=== PATIENT | male | born 1995 | race Asian ===

== ENCOUNTER 2017-07-02 02:23 | Emergency (ER) | payer OTHER ==
[~2017-07-02] VITALS: Ht 162.6 cm; Wt 59.4 kg
[2017-07-02 02:33] VITALS: Ht 162.6 cm; Wt 59.4 kg
[2017-07-02 03:01] LABS: CALCIUM 8.9 mg/dl (8.5-10.1); CREATININE 1.05 mg/dl (0.60-1.40); POTASSIUM 3.4 mmol/L (3.5-5.1)
[2017-07-02 08:37] VITALS: BP 116/88; PULSE 93; TEMP 36.7; O2SAT 99
--- NOTE | 2017-07-02 17:26 | EMERGENCY ROOM VISIT NOTE ---
ED Visit Note First contact with patient: 08:32 Patient was signed out to me by Odette MARTINEZ due to change of shift. Please see his dictation for full history and physical. Patient remained stable while in the ED. He awoke on his own this morning. He denied any areas of discomfort. He does remember being restrained by the police. He currently denies any headache, chest pain, shortness of breath, abdominal pain, or extremity pain. No nausea or vomiting. Reexamination reveals no significant abrasions. He has no pain with palpation over his extremities or back. Good range of motion of his neck. He was discharged to home by taxi. Lion care handout was provided. Avoid alcohol today. Maintain hydration. Alcohol intoxication handout was also provided. Tylenol and Motrin every 6 hours as needed for mild discomfort. Ice to any sore areas as needed. Return to the ED or follow-up with [facility] for any persisting discomfort. Current/Historical Medications No Active Prescriptions or Reported Meds Allergies Coded Allergies: No Known Allergies (Unverified , 07/02/17) Vital Signs Date Time Temp Pulse Resp B/P (MAP) Pulse Ox O2 Delivery O2 Flow Rate FiO2 07/02/17 08:37 36.7 93 10 116/88 99 07/02/17 08:30 116/88 07/02/17 08:20 93 10 99 07/02/17 08:05 85 13 99 07/02/17 08:00 114/84 07/02/17 07:50 91 15 93 07/02/17 07:45 95 17 95 07/02/17 07:31 124/65 07/02/17 07:30 100 13 94 07/02/17 07:15 97 25 90 07/02/17 07:00 102 12 117/77 96 07/02/17 06:56 113/74 07/02/17 06:45 75 15 96 07/02/17 06:30 76 15 96 Room Air 07/02/17 06:07 80 07/02/17 06:00 74 16 117/80 95 Room Air 07/02/17 05:30 77 14 97 Room Air 07/02/17 05:00 78 16 96 Room Air 07/02/17 04:30 85 18 94 Room Air 07/02/17 04:23 83 18 94 Room Air 07/02/17 03:53 86 20 93 Room Air 07/02/17 03:23 104 96 Room Air 07/02/17 03:00 141/80 07/02/17 02:53 110 19 96 Room Air 07/02/17 02:48 135/91 07/02/17 02:46 99 07/02/17 02:40 Room Air 07/02/17 02:40 Room Air 07/02/17 02:33 36.7 109 20 145/87 98 Room Air Laboratory Results 07/02/17 02:30 Test 07/02/17 02:30 Anion Gap 11.0 mmol/L (3-11) Est Creatinine Clear Calc Drug Dose 94.0 ml/min Estimated GFR () 117.9 Estimated GFR (Non- 101.7 BUN/Creatinine Ratio 12.9 (10-20) Calcium Level 8.9 mg/dl (8.5-10.1) Ethyl Alcohol mg/dL 184.0 mg/dl (0-3) Departure Information Impression Primary Impression: Alcohol use with intoxication Dispostion Home / Self-Care Condition GOOD Prescriptions No Active Prescriptions or Reported Meds Referrals No Doctor, Assigned (PCP) [facility] Forms HOME CARE DOCUMENTATION FORM, IMPORTANT VISIT INFORMATION Patient Instructions Alcohol Abuse - [facility], [facility], [facility]: [employer] and Alcohol Related Visits Additional Instructions You were seen and evaluated today on an emergency basis only. This is not a substitute for, or an effort to provide, complete comprehensive medical care. It is not possible to recognize and treat all injuries or illnesses in a single emergency department visit. Keep well-hydrated. Small sips of water over a long period of time are better tolerated than large amounts at once. Tylenol 1000 mg every 6 hours as needed for pain (Maximum 3000 mg Tylenol in 24 hr period). Local police were involved in your episode this evening. Check with them to determine your legal status. Follow up with family doctor as needed. You are welcome to return to the emergency department anytime with new, worsening, or concerning symptoms.
--- NOTE | 2017-07-03 06:08 | EMERGENCY ROOM VISIT NOTE ---
ED Visit Note First contact with patient: 02:26 CHIEF COMPLAINT: Altered mental status from Alcohol overdose HISTORY OF PRESENT ILLNESS: This 21 year old male patient presents to the emergency department via ambulance for evaluation of altered mental status. The patient was identified by local police as he was running in and [place] of the [place] on [address]. The patient did not surrender to police, and attempted to run away from them. He ultimately ended up tripping and they were able to restrain him. The patient was not cooperative according to EMS. The patient will answer questions with a single word response. He does not report injury or medical problems. He admits to drinking but no drug use. REVIEW OF SYSTEMS: Review of systems was somewhat limited secondary to patient' s presumed alcohol intoxication status. Review of systems was performed to the best of our ability and reperformed as the patient began to sober up. All other systems were reviewed and are negative. ALLERGIES: See EMR MEDICATIONS: See EMR PMH: No chronic medical disease SOCIAL HISTORY: Lives locally PHYSICAL EXAM VITALS: Vitals are noted on the nurse's note and reviewed by myself. Vital signs stable. GENERAL: male, who is in no acute distress and resting comfortably. Patient is visibly altered and smells of alcohol. HEAD: Normocephalic atraumatic. EARS: External ear normal. External auditory canals clear, tympanic membranes pearly woo without erythema or effusion bilaterally. EYES: Pupils equal round and reactive to light and accommodation. Conjunctivae without injection, sclerae without icterus. Extraocular movements intact. NOSE: Patent, turbinates without inflammation or discharge. MOUTH: Mucous membranes moist. Tonsils are not enlarged. Pharynx without erythema, blood, vomitus, or exudate. Uvula midline. Airway patent. NECK: Supple without nuchal rigidity. No lymphadenopathy. Cervical spine is nontender. HEART: Regular rate and rhythm without murmurs gallops or rubs. LUNGS: Clear to auscultation bilaterally without wheezes, rales or rhonchi. No retractions or accessory muscle use. ABDOMEN: Positive normal bowel sounds x 4. Soft, nontender, without masses or organomegaly. No guarding or rebound tenderness. MUSCULOSKELETAL: No muscle atrophy, erythema, or edema noted. Gross motor function intact to all extremities. NEURO: Patient was alert to person but not place or time. They appear with altered mental status. SKIN: The skin was without rashes, erythema, edema, or bruising. No Tenting of the skin. EMERGENCY DEPARTMENT COURSE: Physical exam and history was performed. Nursing notes and EMR were reviewed. The patient appears to be altered on my examination. I suspect this is from an alcohol overdose. Conservative care measures and aspiration precautions were instituted. The patient was placed on lunchroom monitor and watched during the patient's stay. The patient was placed in a prone position. Blood work was obtained and was reviewed. The patient's blood alcohol level was 184. This appears to be the primary cause of the altered status. Patient was reevaluated multiple times throughout the course of their emergency department stay. He did not have any worsening of his symptoms and was able to rest very comfortably. The patient remained in stable condition until the time of shift change. The case was discussed with Galileo Kennedy PA-C. Please see Mr. Kennedy's dictation for further patient course, plan, disposition. Current/Historical Medications No Active Prescriptions or Reported Meds Allergies Coded Allergies: No Known Allergies (Unverified , 07/02/17) Vital Signs Date Time Temp Pulse Resp B/P (MAP) Pulse Ox O2 Delivery O2 Flow Rate FiO2 07/02/17 08:37 36.7 93 10 116/88 99 07/02/17 08:30 116/88 07/02/17 08:20 93 10 99 07/02/17 08:05 85 13 99 07/02/17 08:00 114/84 07/02/17 07:50 91 15 93 07/02/17 07:45 95 17 95 07/02/17 07:31 124/65 07/02/17 07:30 100 13 94 07/02/17 07:15 97 25 90 07/02/17 07:00 102 12 117/77 96 07/02/17 06:56 113/74 07/02/17 06:45 75 15 96 07/02/17 06:30 76 15 96 Room Air 07/02/17 06:07 80 07/02/17 06:00 74 16 117/80 95 Room Air 07/02/17 05:30 77 14 97 Room Air 07/02/17 05:00 78 16 96 Room Air 07/02/17 04:30 85 18 94 Room Air 07/02/17 04:23 83 18 94 Room Air 07/02/17 03:53 86 20 93 Room Air 07/02/17 03:23 104 96 Room Air 07/02/17 03:00 141/80 07/02/17 02:53 110 19 96 Room Air 07/02/17 02:48 135/91 07/02/17 02:46 99 07/02/17 02:40 Room Air 07/02/17 02:40 Room Air 07/02/17 02:33 36.7 109 20 145/87 98 Room Air Laboratory Results 07/02/17 02:30 Test 07/02/17 02:30 Anion Gap 11.0 mmol/L (3-11) Est Creatinine Clear Calc Drug Dose 94.0 ml/min Estimated GFR () 117.9 Estimated GFR (Non- 101.7 BUN/Creatinine Ratio 12.9 (10-20) Calcium Level 8.9 mg/dl (8.5-10.1) Ethyl Alcohol mg/dL 184.0 mg/dl (0-3) Departure Information Impression Primary Impression: Alcohol use with intoxication Dispostion Home / Self-Care Condition GOOD Prescriptions No Active Prescriptions or Reported Meds Referrals No Doctor, Assigned (PCP) [facility] Forms HOME CARE DOCUMENTATION FORM, IMPORTANT VISIT INFORMATION Patient Instructions Alcohol Abuse - [facility], [facility], [facility]: [employer] and Alcohol Related Visits Additional Instructions You were seen and evaluated today on an emergency basis only. This is not a substitute for, or an effort to provide, complete comprehensive medical care. It is not possible to recognize and treat all injuries or illnesses in a single emergency department visit. Keep well-hydrated. Small sips of water over a long period of time are better tolerated than large amounts at once. Tylenol 1000 mg every 6 hours as needed for pain (Maximum 3000 mg Tylenol in 24 hr period). Local police were involved in your episode this evening. Check with them to determine your legal status. Follow up with family doctor as needed. You are welcome to return to the emergency department anytime with new, worsening, or concerning symptoms.
== END 2017-07-02 08:38 | disposition home or self-care (01) ==
LOC: EDBD 02:23 → C.EDB 02:24
DX: F10.929 Alcohol use, unspecified with intoxication, unspecified (principal)